=== PATIENT | male | born 1995 | race Caucasian/White ===

== ENCOUNTER 2020-08-13 01:03 | Emergency (ER) | payer BC ==
[2020-08-13 01:14] VITALS: BP 142/83; PULSE 104; RESP 16; TEMP 98.1
--- NOTE | 2020-08-13 01:38 | ED ---
Abdominal Pain HPI - General Chief Complaint: Abdominal Pain Stated Complaint: HERNIA Time Seen by Provider: 08/13/20 01:16 Source: patient, family Mode of arrival: ambulatory Limitations: no limitations - History of Present Illness Initial Comments: This patient is a 25-year-old man who presents to be evaluated for finding in his scrotum that he thinks is a hernia. Patient states that he noticed that there was a purple line of discoloration to the anterior of his scrotum. The patient noticed this tonight when he was getting ready for bed. He states that over the past few days she had been doing a lot of heavy lifting of all parts, and then today he had gone snowboarding. He does not recall any definite injury. He is not having any pain to the scrotum. There is no testicular pain or swelling. No fever or chills. No urethral discharge. No dysuria or hematuria. MD Complaint: other -: minutes(s) Severity scale (1-10): 0 Improves With: nothing Worsens With: nothing Associated Symptoms: denies other symptoms Review of Systems ROS Statement: Those systems with pertinent positive or pertinent negative responses have been documented in the HPI. ROS Other: All systems not noted in ROS Statement are negative. Constitutional: Denies: fever, chills Gastrointestinal: Denies: abdominal pain, nausea, vomiting, diarrhea Genitourinary: Reports: as per HPI. Denies: dysuria, frequency, hematuria, discharge, testicular pain, testicular mass Musculoskeletal: Denies: back pain Skin: Reports: change in color. Denies: rash Past Medical History Past Medical History: No Reported History History of Any Multi-Drug Resistant Organisms: None Reported Past Surgical History: No Surgical Hx Reported Past Psychological History: No Psychological Hx Reported Smoking Status: Never smoker Past Alcohol Use History: Occasional Past Drug Use History: None Reported General Exam Limitations: no limitations General appearance: alert, in no apparent distress Respiratory exam: Present: normal lung sounds bilaterally. Absent: respiratory distress, wheezes, rales, rhonchi, stridor Cardiovascular Exam: Present: regular rate, normal rhythm, normal heart sounds. Absent: systolic murmur, diastolic murmur, rubs, gallop GI/Abdominal exam: Present: soft. Absent: distended, tenderness, guarding, rebound, rigid, organomegaly, mass exam: Present: vertical testicular lie, circumcision, other (Patient has a linear area of ecchymosis approximately 1 similar wide by 4 cm in length down the anterior of the scrotum.). Absent: testicular tenderness, urethral discharge, scrotal swelling Skin exam: Present: warm, dry, intact, normal color. Absent: rash Course Vital Signs 08/13/20 01:12 Temperature 98.1 F Pulse Rate 104 H Respiratory 16 Rate Blood Pressure 142/83 O2 Sat by Pulse 96 Oximetry Medical Decision Making - Medical Decision Making Patient is 25-year-old man presenting with linear streak of discoloration scrotum. Does have appearance consistent with a varicocele however slightly deeper than expected. There is no tenderness. There is no involvement of either testicle. No concern for torsion. As ultrasound is currently not here, patient is given prescription to have ultrasound at his convenience when they return today or if he is not having any symptoms he could have the ultrasound tomorrow. Further follow-up and return parameters discussed. Disposition Clinical Impression: Varicocele Disposition: HOME SELF-CARE Condition: Good Instructions (If sedation given, give patient instructions): Varicocele (ED) Is patient prescribed a controlled substance at d/c from ED?: No Referrals: Torsten Covington MD [Primary Care Provider] - 1-2 days Han Canales MD [STAFF PHYSICIAN] - 1-2 days
== END 2020-08-13 01:48 | disposition home or self-care (01) ==
LOC: EC 01:03
DX: I86.1 Scrotal varices (principal); S30.22XA Contusion of scrotum and testes, initial encounter; X50.0XXA Overexertion from strenuous movement or load, initial encounter
CPT/HCPCS: 99283